=== PATIENT | female | born 1995 | race Caucasian/White ===

== ENCOUNTER 2017-03-09 18:42 | Emergency (ER) | payer BC ==
--- NOTE | ~2017-03-09 | ER ---
PATIENT'S NAME: [facility] AGE: 22 Y [address] ROOM: [place], [place] [address] LOCATION: ED ADMIT DATE: 03/09/2017 ER/Outpatient Report DISCHARGE DATE: 03/09/2017 FAMILY PHYSICIAN: Physician, Unknown ATTENDING PHYSICIAN: Rubi Lea Time of Arrival: 1842 hours. Time of Evaluation: 1916 hours. IDENTIFICATION: A 22-year-old female. CHIEF COMPLAINT: Abdominal pain. HISTORY OF PRESENT ILLNESS: The patient is a 22-year-old female, who has had abdominal pain since December who has undergone workup to include evaluation here in the emergency room and evaluation with Dr. Durand, Dr. Magaña, and [facility]. She has had CAT scans, colonoscopy, EGD with no etiology identified. The pain was resolved for about 3 weeks, but today the pain came back on the right side but has moved more to the right lower abdomen. It is a constant, sharp ache and burning with intermittent exacerbations. She does have a little pain in that right flank. She has nausea, but no vomiting, constipation or diarrhea. Her last bowel movement was just prior to arrival and was normal soft brown and no blood. She has had no dysuria and no increased frequency of urination. Her last menstrual period was 02/15/2017 and was normal. No fever or chills. No cough or shortness of breath. PAST MEDICAL HISTORY: ALLERGIES: MACROBID, MINOCYCLINE AND PERCOCET. CURRENT MEDICATIONS: 1. control pills. 2. Sertraline was just started 2 weeks ago. 3. Propranolol. 4. Zyrtec. 5. Ibuprofen. 6. Omeprazole. MEDICAL PROBLEMS: Gastroesophageal reflux disease, anxiety and unexplained chronic abdominal pain. PATIENT'S NAME: [facility] AGE: 22 Y [address] ROOM: [place], [place] [address] LOCATION: ED ADMIT DATE: 03/09/2017 ER/Outpatient Report DISCHARGE DATE: 03/09/2017 FAMILY PHYSICIAN: Physician, Unknown ATTENDING PHYSICIAN: Rubi Lea PRIOR SURGERY: Colonoscopy and EGD. SOCIAL HISTORY: The patient is from [place]. She is a student at [employer]. Tobacco use, denies. Alcohol use, occasional. Drug use, denies. She did do a pub crawl yesterday and had approximately 5 drinks yesterday. FAMILY HISTORY: No pertinent family history identified. REVIEW OF SYSTEMS: All systems reviewed and negative other than what is noted in the HPI. PHYSICAL EXAMINATION: VITAL SIGNS: Height 5 feet 6 inches, weight 59.6 kg, blood pressure 149/95, pulse 94, respirations 16, temperature 98.3 and sats 98%. GENERAL: A 22-year- old female, in no acute distress although she did have intermittent exacerbations while I was taking her history and was a little bit more distressed at those times. She does rate her pain 8/10 on the pain scale. HEENT: Head: Normocephalic, atraumatic. Ears: TMs translucent both ears. Nose: Mucosa pink, no lesions. Mouth: No lesions. Pharynx benign. NECK: Supple. No lymphadenopathy. No thyromegaly. LUNGS: Clear to auscultation. HEART: Regular rate and rhythm. No murmur, rub, or gallop. ABDOMEN: Bowel sounds present. Soft, nondistended, tender to palpation in the right lower abdomen. No rebound or guarding. Slight CVA Tenderness. SKIN: [place], warm, and dry. No lesions or rashes noted. NEURO: The patient is alert and oriented x4. Cranial nerves 2 through 12 grossly intact. Motor strength 5/5 throughout. Sensation is intact to light touch. PSYCH: The patient is anxious. EMERGENCY DEPARTMENT COURSE: An IV was initiated. The patient was given fentanyl and Zofran for pain and nausea. Her pain improved with the fentanyl. Prior to discharge, she was rating it only at 4 or 5. Sodium 141, potassium 3.4, chloride 107, CO2 of 24, BUN 9, creatinine 0.9, blood sugar 101. Liver enzymes normal. Amylase 73, lipase 201. Urine hCG negative. Hemoglobin 13.5, hematocrit 40.2, platelets 233. White count 10.0 with a normal differential. UA is negative. CT scan stone protocol, no acute abnormalities identified. IMPRESSION: 1. Abdominal pain, chronic with acute exacerbation. PATIENT'S NAME: [facility] AGE: 22 Y [address] ROOM: [place] [address] LOCATION: [facility] ADMIT DATE: 03/09/2017 ER/Outpatient Report DISCHARGE DATE: 03/09/2017 FAMILY PHYSICIAN: Physician, Unknown ATTENDING PHYSICIAN: Rubi Lea 2. Anxiety. PLAN: With the abdominal pain, she is mid cycle and could be mittelschmerz. Continue current medications, Tylenol or ibuprofen for pain. Follow up with [facility] this week. Follow up with counseling for anxiety. The patient and her father understand and agree, and all questions have been answered. MD AYLA MUNSON/paul /[id number] d: 03/10/17 0338 t: 03/10/17 0432, OUTPATIENT REPORT
[2017-03-09 19:35] LABS: BILIRUBIN URINE NEGATIVE (NEGATIVE); BLOOD URINE NEGATIVE /UL (NEGATIVE); GLUCOSE URINE NEGATIVE (NEGATIVE); KETONE URINE NEGATIVE (NEGATIVE); LEUKOCYTES URINE NEGATIVE /UL (NEGATIVE); NITRITE URINE NEGATIVE (NEGATIVE); PROTEIN URINE NEGATIVE (NEGATIVE); SPEC GRAVITY URINE 1.005 (1.003-1.035); UROBILINOGEN URINE NORMAL (NORMAL)
[2017-03-09 19:35] LABS: BASOPHIL % 0.3 %; EOSINOPHIL # 0.2 K/uL (0.0-0.5); EOSINOPHIL % 2.1 %; HEMATOCRIT 40.2 % (33.0-46.0); HEMOGLOBIN 13.5 g/dL (11.0-15.0); IMMATURE GRANULOCYTE % 0.1 %; LYMPHOCYTE # 3.9 K/uL (0.8-4.0); LYMPHOCYTE % 38.9 %; MCH 28.3 pg (27.0-34.0); MCHC 33.6 gm/dL (32.0-36.5); MCV 84.3 fl (83.0-98.0); MONOCYTE # 0.7 K/uL (0.0-1.0); MONOCYTE % 6.8 %; MPV 11.4 fl (9.4-12.4); NEUTROPHIL # (ANC) 5.2 K/uL (1.8-7.8); NEUTROPHIL % 51.8 %; NRBC % 0 /100WBC (0-0.00); PLATELET COUNT 233 K/uL (150-450); RBC 4.77 M/uL (3.50-5.00)
[2017-03-09 19:38] LABS: COLOR URINE YELLOW (YELLOW); TURBIDITY URINE CLEAR (CLEAR)
[2017-03-09 19:50] LABS: ALBUMIN 4.1 gm/dL (3.5-5.0); ALK PHOS 88 IU/L (33-138); ALT 33 IU/L (12-78); ANION GAP 13.4 (10.0-19.0); AST 20 IU/L (10-40); BLOOD UREA NITROGEN 9 mg/dL (6-24); CALCIUM 9.2 mg/dL (8.5-10.5); CHLORIDE 107 mMol/L (96-110); CO2 24 mMol/L (22-32); CREATININE 0.9 mg/dL (0.5-1.1); ESTIMATED GFR (MDRD EQUATION) > 60; POTASSIUM 3.4 mMol/L (3.7-5.1); SODIUM 141 mMol/L (135-145); TOTAL BILIRUBIN 0.8 mg/dL (0.0-1.5); TOTAL PROTEIN 7.6 g/dL (6.0-8.4)
== END 2017-03-09 22:08 | disposition disaster alternative care site (69) ==
LOC: GMED 18:42
PROVIDERS: Family Medicine
DX: G89.29 Other chronic pain (principal); R10.9 Unspecified abdominal pain; F41.9 Anxiety disorder, unspecified; Z88.1 Allergy status to other antibiotic agents; Z88.5 Allergy status to narcotic agent
CPT/HCPCS: J2405; J3010